=== PATIENT | female | born 1935 | race Caucasian/White ===

== ENCOUNTER 2017-03-25 11:58 | Inpatient (IN) | payer MEDICARE, MEDICAID ==
--- NOTE | 2017-03-25 12:17 | ED Physician Chart ---
Chief Complaint/HPI - Patient Information Date Seen:: 03/25/17 Time Seen:: 12:10 Chief Complaint:: Pt was found unresponsive on floor at nursing facility earlier today. History of Present Illness:: Brought in by ambulance from nursing facility for the above reason. Pt appears to be comfortable and is in no distress. Pt has pain with palpation at R hip and R ankle. Pt denies any other bodily pain or discomfort. Pt has h/o dementia and is not fully cooperative. Pt is also a poor history provider. Info is primarily from review of limited transfer documents. H & P are thus limited. Allergies:: PCN Vitals:: see Nurse note. Historian:: Patient, Medical Records (from transferring facility.) Family MD/PCP:: Dr. Ogden LMP:: Postmenopausal Review:: Nurse's Note Reviewed, Transfer documents Reviewed Review of Systems - Review of Systems General/Constitutional: Other (Pt does not cooperate to provide reliable info for ROS.) Past Medical History - Past Medical History Past Medical History: HTN, DM, Dyslipidemia, Dementia Family History: Other (Pt does not cooperate to provide info on FHx.) Social History: Care Facility, Other (Pt does not cooperate to provide info on SHx.) Employment:: Retired. Surgical History: other (Pt does not cooperate to provide info on Surgical Hx.) Psychiatricy History: Depression, Dementia Medication: Reviewed Family Medical History - Family Member mother History Unknown: Yes Physical Exam - Physical Examination General/Constitutional: Awake, Well-developed, well-nourished, Alert, No distress, Non-toxic appearing Other Gen/Cons comments:: Breathes comfortably, speaks clearly, and is responsive to voice and tactile stimuli. Head: Atraumatic Eyes: Lids, conjuctiva normal, PERRL, EOMI Skin: Nl inspection, No rash, No skin lesions, No ecchymosis, Well hydrated, No lymphadenopathy ENMT: External ears, nose nl, Nasal exam nl, Oropharynx nl Neck: Nontender, Full ROM w/o pain, No JVD, No nuchal rigidity, No mass, No stridor Respiratory: Nl effort/Exclusion, Clear to Auscultation, No Wheeze/Rhonchi/Rales Cardio Vascular: No murmur, gallop, rubs Other Cardio Vascular comments:: Regular rhythm with mild bradycardia. VR 52. GI: No tenderness/rebounding/guarding, No organomegaly, No hernia, Normal BS's, Nondistended, No mass/bruits, No McBurney tenderness Other GI comments:: Abdomen is soft. A well healed midline longitudinal surgical scar extending from upper to lower abdomen is noticed. Other Extremities comments:: R hip: Tenderness to palpation at lateral aspect. ROM is limited due to pain. No gross deformity, erythema, ecchymosis, swelling or open wound. R ankle: Diffuse tenderness with mild swelling. No erythema, ecchymosis, or open wound. Chronic changes with well healed surgical scars noticed. ROM is not well assessed due to pain. No detectable motor/sensory/vascular deficit. Good distal pulse and capillary refill. Neuro/Psych: Alert/oriented (knows her name and that she is in a hospital.) Other Neuro/Psych comments:: spontaneous movements noticed in all 4 extremities. Pt does not cooperate for full neurological exam. Labs/Radiology/EKG Results - Lab Results Results: Laboratory Tests 03/25/17 12:09 POC Glucose 77 Laboratory Tests 03/25/17 03/25/17 03/25/17 12:09 12:35 12:35 WBC 10.1 RBC 3.38 L Hgb 10.5 L Hct 30.7 L MCV 90.9 MCH 31.1 H MCHC Differential 34.2 RDW 12.7 Plt Count 250 MPV 7.7 Neutrophils % 67.9 Lymphocytes % 17.5 L Monocytes % 8.2 Eosinophils % 6.4 H Basophils % 0.0 PT 11.4 INR 1.09 PTT (Actin FS) 25.6 L Sodium Potassium Chloride Carbon Dioxide Anion Gap BUN Creatinine Est GFR ( Amer) Est GFR (Non-Af Amer) BUN/Creatinine Ratio Glucose POC Glucose 77 Calcium Total Bilirubin AST ALT Alkaline Phosphatase Creatine Kinase Troponin I Total Protein Albumin Globulin Albumin/Globulin Ratio Urine Source Urine Color Urine Clarity Urine pH Ur Specific [place] Urine Protein Urine Glucose (UA) Urine Ketones Urine Blood Urine Nitrate Urine Bilirubin Urine Urobilinogen Ur Leukocyte Esterase Urine RBC Urine WBC Ur Epithelial Cells Urine Bacteria 03/25/17 03/25/17 03/25/17 12:35 12:35 13:44 WBC RBC Hgb Hct MCV MCH MCHC Differential RDW Plt Count MPV Neutrophils % Lymphocytes % Monocytes % Eosinophils % Basophils % PT INR PTT (Actin FS) Sodium 136 Potassium 4.3 Chloride 107 Carbon Dioxide 25.3 Anion Gap 8.0 BUN 31 H Creatinine 1.4 H Est GFR ( Amer) TNP Est GFR (Non-Af Amer) TNP BUN/Creatinine Ratio 22.1 Glucose 108 H POC Glucose Calcium 9.7 Total Bilirubin 0.5 AST 12 L ALT 7 Alkaline Phosphatase 44 Creatine Kinase 53 Troponin I 0.02 Total Protein 6.7 Albumin 3.6 L Globulin 3.1 Albumin/Globulin Ratio 1.2 Urine Source CATH Urine Color YELLOW Urine Clarity H Urine pH 6.0 Ur Specific [place] 1.020 Urine Protein >=300 Urine Glucose (UA) NEGATIVE Urine Ketones NEGATIVE Urine Blood TRACE Urine Nitrate NEGATIVE Urine Bilirubin NEGATIVE Urine Urobilinogen 0.2 Ur Leukocyte Esterase NEGATIVE Urine RBC 0-2 Urine WBC 2-5 Ur Epithelial Cells FEW Urine Bacteria NONE SEEN - Radiology Results Results: R hip X-ray (2v.): Based on my interpretation, degenerative changes noticed. No acute fx or subluxation. Official report is pending. R ankle X-ray: Based on my interpretation, chronic changes with surgical hardwares in place. No acute fx or subluxation. Official report is pending. - EKG Interpretations EKG Time:: 12:29 Rate & Rhythm: Sinus bradycardia with VR 52. Comments:: NSSTT changes. Cardiac monitoring: Sinus bradycardia with VR 55. No ectopy. ED Septic Shock - . Is Septic Shock (SBP<90, OR Lactate>4 mmol\L) present?: No Reassessment (Disposition) - Reassessment Reassessment:: 1535 Pt has been repeatedly evaluated. Pt remains stable. No new findings. Awaiting X-rays. 1713 Pt remains stable. X-rays just became available and have been reviewed. Dr. Morocho is to be contacted. 1858 Pt has been stable and comfortable. Repeat Accuchek is 97. Attempts to reach Dr. Morocho repeatedly without success. Case was discussed with Dr. Lacey. Pt is to be admitted to [facility] under his care. Reassessment Condition:: Improved - Diagnosis Diagnosis:: Bradydysrrhythmia. Syncope by hx. R hip and R ankle contusion. Diabetes mellitus, stable. - Patient Disposition Admitted to:: Telemetry Admitting Medical Physician:: Frank Lacey Time:: 19:00 Condition at Disposition:: Stable, Improved
[2017-03-25] MEDS ORDERED: D5-0.45NS 1,000 ML IV ONE (12:21)
[2017-03-25 12:45] LABS: % EOSINOPHILS 6.4 % (0.0-5.0); % LYMPHOCYTES 17.5 % (20.0-50.0); % MONOCYTES 8.2 % (2.0-10.0); % NEUTROPHILS 67.9 % (40.0-80.0); HEMATOCRIT 30.7 % (35.0-45.0); HEMOGLOBIN 10.5 gm/dL (11.7-16.1); MEAN CELL VOLUME 90.9 fl (81-100); MEAN CORPUSCULAR HEMOGLOBIN 31.1 pg (27.0-31.0); MEAN CORPUSCULAR HGB CONC 34.2 pg (28.0-36.0); MEAN PLATELET VOLUME 7.7 fl; NEUTROPHILE ABSOLUTE 6.9 Th/cmm (1.8-8.0); PLATELET COUNT 250 Th/cmm (150-400); RED BLOOD COUNT 3.38 Mil/cmm (3.80-5.20); RED CELL DISTRIBUTION WIDTH 12.7 % (11.5-20.0); WHITE BLOOD COUNT 10.1 Th/cmm (4.8-10.8)
[2017-03-25 13:00] LABS: INR 1.09 (0.5-1.4); PROTHROMBIN TIME (TEST) 11.4 SECONDS (9.5-11.5)
[2017-03-25 13:11] LABS: POTASSIUM SERUM 4.3 mEq/L (3.5-5.1); SODIUM SERUM 136 mEq/L (136-145)
[2017-03-25 13:12] LABS: CHLORIDE 107 mEq/L (98-107)
[2017-03-25 13:18] LABS: ALKALINE PHOSPHATASE 44 U/L (34-104); CARBON DIOXIDE 25.3 mEq/L (21.0-31.0); SGPT/ALT 7 U/L (7-52)
[2017-03-25 13:19] LABS: BILIRUBIN,TOTAL 0.5 mg/dL (0.3-1.0); BUN - UREA NITROGEN 31 mg/dL (7-25); BUN/CREATININE RATIO 22.1; CALCIUM SERUM 9.7 mg/dL (8.6-10.3); CREATININE - SERUM 1.4 mg/dL (0.6-1.2); GLUCOSE 108 mg/dL (70-105); SGOT 12 U/L (13-39)
[2017-03-25 13:20] LABS: ALB/GLOB RATIO 1.2 (1.0-1.8)
[2017-03-25 14:05] LABS: URINE BILIRUBIN NEGATIVE (NEGATIVE); URINE BLOOD TRACE (NEGATIVE); URINE GLUCOSE (UA) NEGATIVE (NEGATIVE); URINE KETONE NEGATIVE (NEGATIVE); URINE PROTEIN >=300 mg/dL (NEGATIVE); URINE UROBILINOGEN 0.2 E.U./dL (0.2 - 1.0)
[2017-03-25 14:11] LABS: URINE BACTERIA NONE SEEN /hpf (NONE SEEN); URINE COLOR YELLOW; URINE EPITHELIAL CELLS FEW /lpf (FEW); URINE RBC 0-2 /hpf (0-5)
[2017-03-25] MEDS ORDERED: guaiFENesin 200 MG/10 ML UDC PO PRN (19:29)
[2017-03-25] MEDS ORDERED: Ipratropium Neb 0.5 mg/2.5 mL UD IH PRN (19:29)
[2017-03-25] MEDS ORDERED: Albuterol Nebulizer 2.5mg/3mL HHN PRN (19:29)
[2017-03-25] MEDS ORDERED: Maalox 30 mL Cup PO PRN (19:29)
[2017-03-25] MEDS ORDERED: Non-Formulary Item 1 EA (Rosuvastatin Calcium [Crestor] 5 MG) PO SCH (21:00)
--- NOTE | 2017-03-25 21:21 | Admit Criteria Form ---
Admit Criteria Forms - Admit Criteria Diagnosis: TELEMETRY CARE Telemetry Admission Guidelines (Place 'X' for any and all applicable criteria): Admission to telemetry [A] may be indicated for ANY ONE of the following(1)(2)(3 )(4)(5): [X ]I. Cardiac disease, including ANY ONE of the following (9)(10)(11)(12)( 13): [ ]a) Postacute [place] [ ]b) Low-risk patients with ST-segment elevation [place] who have undergone successful percutaneous coronary intervention [ ]c) Unstable angina [ ]d) Suspected [place] (until it is ruled out) [ ]e) Post cardiac surgery (first 48 to 72 hours unless complications occur) [ X]f) Acute arrhythmias (including significant tachycardia or bradycardia) [B] [ ]g) Firing of an implantable cardioverter defibrillator [C] [ ]h) Suspected pacemaker or implantable cardioverter defibrillator malfunction (10) [ ]i) New administration or adjustment of an antiarrhythmic drug [D ] [ ]j) Child admitted for acute congestive heart failure [ ]j) Long QT syndrome [ ]k) Advanced heart block (eg, second-degree Mobitz type II, third- degree heart block) [ ]l) Acute myocarditis or pericarditis [ ]m) Short-term (ambulatory or inpatient) monitoring after a cardiac procedure as indicated by ANY ONE of the following [E]: [ ]i) Electrophysiologic studies [ ]ii) Percutaneous coronary intervention with stent placement [ ]iii) Pacemaker placement with cardiac conduction defect [ ]iv) Implantable cardiac defibrillator placement [ ]II. Drug overdose or poisoning with substance that causes arrhythmias or QT prolongation (eg, phenothiazines, sympathomimetic agents, cyclic antidepressants, digitalis, antiarrhythmic drugs)(15) [ ]III. Short-term (ambulatory or inpatient) monitoring after therapeutic or diagnostic procedure requiring conscious sedation or anesthesia (eg, endoscopy, elective cardioversion) [ ]IV. Acute cerebrovascular even[F](18) [ ]V. Massive blood transfusion (eg, at least 10 units of packed red blood cells in 24 hours) [ ]. Variceal bleeding after endoscopy, sclerotherapy, or IV vasopressin [ ]VII. Uncorrected electrolyte abnormalities associated with an increased risk of dangerous arrhythmia [G]; examples include [ ]a) Hyperkalemia with attributable ECG changes [ ]b) Potassium greater than 6.5 mmol/L (mEq/L) in a patient without history of chronic renal disease [ ]c) Prolonged QT attributed to hypokalemia, hypomagnesemia, or hypocalcemia [ ]VIII.Unexplained syncope or other neurologic event suspected of being due to arrhythmia due to a finding that increases risk; examples include(19)(20)(21): [ ]a) High-risk ECG findings (eg, bifascicular block, bradycardia, abnormal QT interval, ventricular pre- excitation) [ ]b) History of previous syncope due to arrhythmia [ ]c) Abnormal ventricular function (eg, reduced ejection fraction ) [ ]d) Exertional or supine syncope [ ]e) Concerning syncope characteristics (eg, sudden loss of consciousness without prodrome) [ ]f) Family history of sudden [ ]g) Use of arrhythmogenic medication [ ]h) Suspected cardiac ischemia [ ]i) Known channelopathy (eg, long QT syndrome, Brugada syndrome, or catecholaminergic paroxysmal ventricular tachycardia) [ ]j) Known structural heart disease (eg, hypertrophic cardiomyopathy , severe valvular disease) [ ]k) Palpitations preceding syncope The original [employer] content created by [employer] has been revised. The portions of the content which have been revised are identified through the use of italic text or in bold, and [facility] has neither reviewed nor approved the modified material. All other unmodified content is copyright [employer]. Please see references footnoted in the original [employer] edition 2016 Admit Criteria Met?: Yes
--- NOTE | 2017-03-25 21:40 | History and Physical ---
History of Present Illness - HPI Chief Complaint: aloc, black out HPI: 81 yo female with dementia, dm and htn sent to er 2 being found down, unconscious, pt is confused , unable to give detailed history, pt denies cp and sob Vital Signs: Last Vital Signs Temp 98.7 F 03/25/17 20:00 Pulse 63 03/25/17 20:00 Resp 20 03/25/17 20:00 BP 110/59 03/25/17 20:00 Pulse Ox 97 03/25/17 20:00 Past Medical History Cardiovascular: Report: CAD, CHF, HTN Pulmonary: Report: No Pertinent Hx FUEL OPERATOR: Report: Dementia GI: Report: No Pertinent Hx Psych: Report: No Pertinent Hx, Psychosis Musculoskeletal: Report: No Pertinent Hx Rheumatologic: Report: No pertinent Hx Infectious Disease: Report: No Pertinent Hx Endocrine: Report: Diabetes Dermatology: Report: No Pertinent Hx - Past Surgical History Past Surgical History: No pertinent Hx Family Medical History - Family Member mother History Unknown: Yes Living Status: Unknown Hx Family Cancer: No Hx Family Coronary Artery Disease: No Hx Family Congestive Heart Failure: No Hx Family Hypertension: No Hx Family Stroke: No Hx Family Diabetes: No Hx Family Seizures: No Hx Family Dementia: No Hx Family AIDS: No Hx Family HIV: No Hx Family COPD: No Hx Family Hepatitis: No Hx Family Psychiatric Problems: No Hx Family Tuberculosis: No Social History Smoke: No Alcohol: None Drugs: None Lives: Detention Domestic Violence: Negative - Medications Home Medications: Home Medication Medication Instructions Recorded Type Acetaminophen [Tylenol] 650 mg PO Q4HR PRN 03/25/17 History Aspirin [Aspirin Chewable] 81 mg PO DAILY 03/25/17 History Brimonidine 0.2% Ophth Soln 1 drop EACH EYE BID 03/25/17 History [Alphagan 0.2% Ophth Soln] Carvedilol [Coreg] 12.5 mg PO BID 03/25/17 History Cholecalciferol (Vitamin D3) 2,000 iu PO DAILY 03/25/17 History [Vitamin D3] Dextromethorphan/Quinidine 1 cap PO DAILY 03/25/17 History [Nuedexta 20mg-10mg] Insulin Aspart, Recombinant 2 unit SUBQ ACHS 03/25/17 History [NovoLOG] Insulin NPH Human Isophane 12 unit SQ QAM 03/25/17 History [Humulin N] Insulin NPH Human Isophane 20 unit SQ HS 03/25/17 History [Humulin N] Lisinopril [Prinivil] 10 mg PO DAILY 03/25/17 History Memantine [Namenda] 5 mg PO BID 03/25/17 History Ondansetron [Zofran Odt] 8 mg PO Q8H PRN 03/25/17 History Rosuvastatin Calcium [Crestor] 5 mg PO HS 03/25/17 History Sitagliptin Phosphate [Januvia] 100 mg PO DAILY 03/25/17 History metFORMIN [Glucophage] 850 mg PO TID 03/25/17 History - Allergies Allergies/Adverse Reactions: Allergies Allergy/AdvReac Type Severity Reaction Status Date / Time Penicillins Allergy Verified 03/25/17 12:21 Review of Systems - Review of Systems Constitutional: Report: Weakness Eyes: Report: No Significant ENT: Report: No Significant Respiratory: Report: No Significant Cardiovascular: Report: No Significant Gastrointestinal: Report: No Significant Genitourinary: Report: Incontinence Musculoskeletal: Report: No Significant Skin: Report: No Significant Neurological: Report: Confusion Physical Exam - Physical Exam HEENT: Report: Ears Nose Throat within normal limits Neck: Report: Within normal limits Cardiovascular Systems: Report: +s1/s2 noted, Regular, Rate and Rhythm, Systolic Murmur Respiratory: Report: Breath Sounds are within normal limits Abdomen: Report: Non-tender to palpation Back: Report: Inspection of back is within normal limits. Extremities: Report: Non-tender to palpation. Skin: Report: Color of skin is within normal limits Neuro/Psych: Report: Disoriented to name time or place - Lab Results All Lab Results last 24 hours: Laboratory Last Values WBC 10.1 Th/cmm (4.8-10.8) 03/25/17 12:35 RBC 3.38 Mil/cmm (3.80-5.20) L 03/25/17 12:35 Hgb 10.5 gm/dL (11.7-16.1) L 03/25/17 12:35 Hct 30.7 % (35.0-45.0) L 03/25/17 12:35 MCV 90.9 fl (81-100) 03/25/17 12:35 MCH 31.1 pg (27.0-31.0) H 03/25/17 12:35 MCHC Differential 34.2 pg (28.0-36.0) 03/25/17 12:35 RDW 12.7 % (11.5-20.0) 03/25/17 12:35 Plt Count 250 Th/cmm (150-400) 03/25/17 12:35 MPV 7.7 fl 03/25/17 12:35 Neutrophils % 67.9 % (40.0-80.0) 03/25/17 12:35 Lymphocytes % 17.5 % (20.0-50.0) L 03/25/17 12:35 Monocytes % 8.2 % (2.0-10.0) 03/25/17 12:35 Eosinophils % 6.4 % (0.0-5.0) H 03/25/17 12:35 Basophils % 0.0 % (0.0-2.0) 03/25/17 12:35 PT 11.4 SECONDS (9.5-11.5) 03/25/17 12:35 INR 1.09 (0.5-1.4) 03/25/17 12:35 PTT (Actin FS) 25.6 SECONDS (26.0-38.0) L 03/25/17 12:35 Sodium 136 mEq/L (136-145) 03/25/17 12:35 Potassium 4.3 mEq/L (3.5-5.1) 03/25/17 12:35 Chloride 107 mEq/L (98-107) 03/25/17 12:35 Carbon Dioxide 25.3 mEq/L (21.0-31.0) 03/25/17 12:35 Anion Gap 8.0 (7.0-16.0) 03/25/17 12:35 BUN 31 mg/dL (7-25) H 03/25/17 12:35 Creatinine 1.4 mg/dL (0.6-1.2) H 03/25/17 12:35 Est GFR ( Amer) TNP 03/25/17 12:35 Est GFR (Non-Af Amer) TNP 03/25/17 12:35 BUN/Creatinine Ratio 22.1 03/25/17 12:35 Glucose 108 mg/dL (70-105) H 03/25/17 12:35 POC Glucose 98 MG/DL (70 - 105) 03/25/17 18:32 Calcium 9.7 mg/dL (8.6-10.3) 03/25/17 12:35 Total Bilirubin 0.5 mg/dL (0.3-1.0) 03/25/17 12:35 AST 12 U/L (13-39) L 03/25/17 12:35 ALT 7 U/L (7-52) 03/25/17 12:35 Alkaline Phosphatase 44 U/L (34-104) 03/25/17 12:35 Creatine Kinase 53 U/L (30-223) 03/25/17 12:35 Troponin I 0.02 ng/mL (0.01-0.05) 03/25/17 12:35 Total Protein 6.7 gm/dL (6.0-8.3) 03/25/17 12:35 Albumin 3.6 gm/dL (3.7-5.3) L 03/25/17 12:35 Globulin 3.1 gm/dL 03/25/17 12:35 Albumin/Globulin Ratio 1.2 (1.0-1.8) 03/25/17 12:35 Urine Source CATH 03/25/17 13:44 Urine Color YELLOW 03/25/17 13:44 Urine Clarity H (CLEAR) 03/25/17 13:44 Urine pH 6.0 (4.6 - 8.0) 03/25/17 13:44 Ur Specific [place] 1.020 (1.005-1.030) 03/25/17 13:44 Urine Protein >=300 mg/dL (NEGATIVE) 03/25/17 13:44 Urine Glucose (UA) NEGATIVE mg/dL (NEGATIVE) 03/25/17 13:44 Urine Ketones NEGATIVE mg/dL (NEGATIVE) 03/25/17 13:44 Urine Blood TRACE (NEGATIVE) 03/25/17 13:44 Urine Nitrate NEGATIVE (NEGATIVE) 03/25/17 13:44 Urine Bilirubin NEGATIVE (NEGATIVE) 03/25/17 13:44 Urine Urobilinogen 0.2 E.U./dL (0.2 - 1.0) 03/25/17 13:44 Ur Leukocyte Esterase NEGATIVE (NEGATIVE) 03/25/17 13:44 Urine RBC 0-2 /hpf (0-5) 03/25/17 13:44 Urine WBC 2-5 /hpf (0-5) 03/25/17 13:44 Ur Epithelial Cells FEW /lpf (FEW) 03/25/17 13:44 Urine Bacteria NONE SEEN /hpf (NONE SEEN) 03/25/17 13:44 - Assessment Assessment: syncope dm htn anemia ri dementia Current Active Problems Problem Status Onset ALTERED MENTAL STATUS Acute - Plan Plan: cont on ada ivf will order echo will order carotid ultrasound will review ryanne wolf rn
[2017-03-25] MEDS: Sodium Chloride 0.9% 1,000 ML IV SCH (22:05)
[2017-03-25] MEDS: INSULIN ASPART, RECOMBINANT 100 UNITS/ML SUBQ SCH (22:10)
[2017-03-25] MEDS ORDERED: Pneumococcal Vaccine 0.5 mL Vial IM ONE (23:42)
[2017-03-26 00:54] VITALS: BP 110/59
[2017-03-26] MEDS: INSULIN ASPART, RECOMBINANT 100 UNITS/ML SUBQ SCH ×4 (07:42→22:19)
[2017-03-26] MEDS: Vitamin D3 2,000 IU SGL PO SCH (08:40)
[2017-03-26] MEDS: Dextromethorphan/Quinidine 20mg/10mg Cap PO SCH (08:40)
[2017-03-26] MEDS: Aspirin 81mg Chewable Tab PO SCH (08:40)
[2017-03-26] MEDS: Sodium Chloride 0.9% 1,000 ML IV SCH ×2 (10:25→22:34)
--- NOTE | 2017-03-26 11:01 | Diagnostic Imaging Report ---
Bilateral carotid Doppler ultrasound exam HISTORY: Stroke, CVA, atherosclerotic vascular disease Sonographic static images were obtained to the carotid bifurcation regions bilaterally. Associated Doppler data was obtained. The exam demonstrates mild atherosclerotic plaque within the right carotid bulb and proximal portions of the right internal and external carotid arteries. No significant narrowing or stenosis. Antegrade vertebral artery flow. The ICA/CCA flow ratios normal (0.68). The left side demonstrates mild plaque within the carotid bulb region as well as within the proximal portions of the left internal and external carotid arteries. No significant narrowing or stenosis. Antegrade vertebral artery flow. The ICA/CCA flow ratios normal (1.35). IMPRESSION: 1. Somewhat limited exam due to marked tortuosity of the common carotid arteries. 2. Mild atherosclerotic changes that do not appear to be hemodynamically significant
--- NOTE | 2017-03-26 11:18 | Diagnostic Imaging Report ---
Right ankle (3 views) HISTORY: Pain The exam demonstrates surgical changes associated with an intramedullary fixation luis traversing the distal tibia and talocalcaneal region. Surgical screws noted traversing the calcaneus and talar areas. There is obliteration of the talus and joint spaces throughout the ankle region with apparent fusion. No definite acute bony abnormalities. No definite acute fractures. Vascular calcification noted. IMPRESSION: 1. Severe deformity associated with extensive surgical changes as noted above. No definite acute abnormalities 2. Atherosclerotic vascular changes In the presence of recent trauma and persistent symptoms, a repeat radiograph in 5-7 days may be helpful for detection of a subtle or occult fracture.
--- NOTE | 2017-03-26 11:21 | Diagnostic Imaging Report ---
Right hip (3 views) HISTORY: Pain Joint space narrowing. Femoral head exhibits a normal contour. No focal lesions. No fractures. Vascular calcification noted. Degenerative changes are seen within the visualized lower lumbar spine. IMPRESSION: 1. No acute abnormalities 2. Degenerative changes
--- NOTE | 2017-03-26 12:25 | Internal Medicine Prog Note ---
Internal Medicine Subjective - Subjective Service Date: 03/26/17 (carotid us impression mild arthersclerotic changes that do not appear to be hemodynamically significant. ) Patient seen and examined:: with staff Patient is:: awake, verbal, confused Per staff patient has:: tolerating meds Internal Medicine Objective - Results Result Diagrams: 03/25/17 12:35 03/25/17 12:35 Recent Labs: Laboratory Last Values WBC 10.1 Th/cmm (4.8-10.8) 03/25/17 12:35 RBC 3.38 Mil/cmm (3.80-5.20) L 03/25/17 12:35 Hgb 10.5 gm/dL (11.7-16.1) L 03/25/17 12:35 Hct 30.7 % (35.0-45.0) L 03/25/17 12:35 MCV 90.9 fl (81-100) 03/25/17 12:35 MCH 31.1 pg (27.0-31.0) H 03/25/17 12:35 MCHC Differential 34.2 pg (28.0-36.0) 03/25/17 12:35 RDW 12.7 % (11.5-20.0) 03/25/17 12:35 Plt Count 250 Th/cmm (150-400) 03/25/17 12:35 MPV 7.7 fl 03/25/17 12:35 Neutrophils % 67.9 % (40.0-80.0) 03/25/17 12:35 Lymphocytes % 17.5 % (20.0-50.0) L 03/25/17 12:35 Monocytes % 8.2 % (2.0-10.0) 03/25/17 12:35 Eosinophils % 6.4 % (0.0-5.0) H 03/25/17 12:35 Basophils % 0.0 % (0.0-2.0) 03/25/17 12:35 PT 11.4 SECONDS (9.5-11.5) 03/25/17 12:35 INR 1.09 (0.5-1.4) 03/25/17 12:35 PTT (Actin FS) 25.6 SECONDS (26.0-38.0) L 03/25/17 12:35 Sodium 136 mEq/L (136-145) 03/25/17 12:35 Potassium 4.3 mEq/L (3.5-5.1) 03/25/17 12:35 Chloride 107 mEq/L (98-107) 03/25/17 12:35 Carbon Dioxide 25.3 mEq/L (21.0-31.0) 03/25/17 12:35 Anion Gap 8.0 (7.0-16.0) 03/25/17 12:35 BUN 31 mg/dL (7-25) H 03/25/17 12:35 Creatinine 1.4 mg/dL (0.6-1.2) H 03/25/17 12:35 Est GFR ( Amer) TNP 03/25/17 12:35 Est GFR (Non-Af Amer) TNP 03/25/17 12:35 BUN/Creatinine Ratio 22.1 03/25/17 12:35 Glucose 108 mg/dL (70-105) H 03/25/17 12:35 POC Glucose 142 MG/DL (70 - 105) H 03/26/17 11:33 Calcium 9.7 mg/dL (8.6-10.3) 03/25/17 12:35 Total Bilirubin 0.5 mg/dL (0.3-1.0) 03/25/17 12:35 AST 12 U/L (13-39) L 03/25/17 12:35 ALT 7 U/L (7-52) 03/25/17 12:35 Alkaline Phosphatase 44 U/L (34-104) 03/25/17 12:35 Creatine Kinase 53 U/L (30-223) 03/25/17 12:35 Troponin I 0.02 ng/mL (0.01-0.05) 03/25/17 12:35 Total Protein 6.7 gm/dL (6.0-8.3) 03/25/17 12:35 Albumin 3.6 gm/dL (3.7-5.3) L 03/25/17 12:35 Globulin 3.1 gm/dL 03/25/17 12:35 Albumin/Globulin Ratio 1.2 (1.0-1.8) 03/25/17 12:35 Urine Source CATH 03/25/17 13:44 Urine Color YELLOW 03/25/17 13:44 Urine Clarity H (CLEAR) 03/25/17 13:44 Urine pH 6.0 (4.6 - 8.0) 03/25/17 13:44 Ur Specific [place] 1.020 (1.005-1.030) 03/25/17 13:44 Urine Protein >=300 mg/dL (NEGATIVE) 03/25/17 13:44 Urine Glucose (UA) NEGATIVE mg/dL (NEGATIVE) 03/25/17 13:44 Urine Ketones NEGATIVE mg/dL (NEGATIVE) 03/25/17 13:44 Urine Blood TRACE (NEGATIVE) 03/25/17 13:44 Urine Nitrate NEGATIVE (NEGATIVE) 03/25/17 13:44 Urine Bilirubin NEGATIVE (NEGATIVE) 03/25/17 13:44 Urine Urobilinogen 0.2 E.U./dL (0.2 - 1.0) 03/25/17 13:44 Ur Leukocyte Esterase NEGATIVE (NEGATIVE) 03/25/17 13:44 Urine RBC 0-2 /hpf (0-5) 03/25/17 13:44 Urine WBC 2-5 /hpf (0-5) 03/25/17 13:44 Ur Epithelial Cells FEW /lpf (FEW) 03/25/17 13:44 Urine Bacteria NONE SEEN /hpf (NONE SEEN) 03/25/17 13:44 - Physical Exam Vitals and I&O: Vital Signs Temp 98.6 F 03/26/17 08:00 Pulse 62 03/26/17 08:41 Resp 20 03/26/17 08:00 BP 100/73 03/26/17 08:41 Pulse Ox 98 03/26/17 08:00 Intake & Output 03/25/17 03/26/17 03/26/17 18:59 06:59 18:59 Intake Total 986.667 Balance 986.667 Weight (lbs) 121 lb 3.2 oz Intake: Intake, IV Amount 986.667 Sodium Chloride 0.9% 1, 986.667 000 ml @ 80 mls/hr IV . [id number] [facility] Rx#:[id number] Active Medications: Current Medications Acetaminophen (Tylenol) 650 mg PO Q4HR PRN PRN Reason: pain/temp >101 Stop: 05/24/17 19:23 Al Hydrox/Mg Hydrox/Simethicone (Maalox) 30 ml PO Q6H PRN PRN Reason: Dyspepsia Stop: 05/24/17 19:28 Albuterol Sulfate (Albuterol 2.5mg/3ml Neb Ud) 2.5 mg HHN Q2HRT PRN PRN Reason: Shortness of Breath or Wheeze Stop: 05/24/17 19:28 Aspirin (Aspirin Chewable) 81 mg PO DAILY [facility] Stop: 05/25/17 08:59 Last Admin: 03/26/17 08:40 Dose: 81 mg Atorvastatin Calcium (Lipitor) 10 mg PO HS [facility] Stop: 05/25/17 20:59 Brimonidine Tartrate (Alphagan 0.2% Oph Sol) 1 drop EACH EYE BID [facility] Stop: 05/25/17 08:59 Last Admin: 03/26/17 08:49 Dose: 1 drop Dextromethorphan/Quinidine (Nuedexta 20mg-10mg) 1 cap PO DAILY [facility] Stop: 05/25/17 08:59 Last Admin: 03/26/17 08:40 Dose: 1 cap Guaifenesin (Robitussin) 200 mg PO Q4HR PRN PRN Reason: Cough or Congestion Stop: 05/24/17 19:28 Sodium Chloride (Nacl 0.9%) 1,000 mls @ 80 mls/hr IV .[id number] [facility] Stop: 05/24/17 19:29 Last Admin: 03/26/17 10:25 Dose: 80 mls/hr Insulin Aspart (Novolog) 0 units SUBQ ACHS [facility] PRN Reason: Protocol Stop: 05/24/17 20:59 Last Admin: 03/26/17 07:42 Dose: Not Given Ipratropium [place] (Atrovent Neb 0.5mg/2.5ml) 0.5 mg IH Q2HRT PRN PRN Reason: Shortness of Breath or Wheeze Stop: 05/24/17 19:28 Lisinopril (Zestril) 10 mg PO DAILY [facility] Stop: 05/25/17 08:59 Last Admin: 03/26/17 08:41 Dose: Not Given Memantine (Namenda) 5 mg PO BID [facility] Stop: 05/25/17 08:59 Last Admin: 03/26/17 08:40 Dose: 5 mg Metformin HCl (Glucophage) 850 mg PO TID [facility] Stop: 05/24/17 20:59 Last Admin: 03/26/17 08:40 Dose: Not Given Miscellaneous (Clinical Monitoring) 1 ea MC DAILY PRN PRN Reason: RENAL-METFORMIN Stop: 05/25/17 08:22 Nitroglycerin (Nitrostat) 0.4 mg SL Q5MIN PRN PRN Reason: Chest Pain Stop: 05/24/17 19:28 Ondansetron HCl (Zofran Odt) 8 mg PO Q8H PRN PRN Reason: Nausea / Vomiting Ondansetron HCl (Zofran) 4 mg IV Q8H PRN PRN Reason: Nausea / Vomiting Stop: 05/24/17 19:28 Pneumococcal Polyvalent Vaccine (Pneumovax) 0.5 ml IM .ONCE ONE Stop: 03/27/17 09:01 Sitagliptin Phosphate (Januvia) 100 mg PO DAILY [facility] Stop: 05/25/17 08:59 Last Admin: 03/26/17 08:43 Dose: Not Given Vitamin D (Vitamin D3) 2,000 iu PO DAILY [facility] Stop: 05/25/17 08:59 Last Admin: 03/26/17 08:40 Dose: 2,000 iu General: weak, alert HEENT: NC/AT, PERRLA Neck: Supple Lungs: CTAB Cardiovascular: RRR, Normal S1, Normal S2, without murmur Abdomen: soft, non-tender, non-distended Internal Medicine Assmt/Plan - Assessment Assessment: syncope dm htn anemia ri dementia - Plan Plan: fall precautions ivf for hydration am labs cardio consult await 2d echo results
--- NOTE | 2017-03-26 13:13 | Cardiology ---
03/25/[address] Lacey M-MODE ECHOCARDIOGRAM: Mitral valve, anterior leaflet of mitral valve shows normal excursion, EF velocity. Posterior leaflet of mitral valve shows normal excursion. Left ventricular posterior wall shows increased thickness, normal excursion. Interventricular septum shows increased thickness, normal excursion, hypertrophy of the left ventricle, ejection fraction 55%. Left atrium normal. Aortic root shows normal dimension, normal excursion of aortic leaflets. CONCLUSION: Hypertrophy of the left ventricle, ejection fraction 55%. 2D ECHO: Long axis view show normal size left ventricle with hypertrophy of the left ventricle. Left atrium normal. Aortic root shows normal dimension, normal excursion of aortic leaflets. Short axis view of mitral valve normal. Short axis view of aortic valve normal. Apical four chamber view showed normal sized left ventricle with hypertrophy of the left ventricle. Left atrium normal. Right ventricular cavity, right atrium normal, no pericardial effusion. CONCLUSION: Hypertrophy of the left ventricle, ejection fraction 55%. Doppler study shows prominent A wave consistent with poor compliance of left ventricle. Mild tricuspid regurgitation, trace aortic regurgitation, trace mitral regurgitation. Right ventricular systolic pressure 27 mmHg. JOB# [id number]
[2017-03-26] MEDS: Atorvastatin Calcium 10 MG TAB PO SCH (21:21)
--- NOTE | 2017-03-26 23:58 | Consultation ---
DATE OF CONSULTATION: 03/25/2017 PATIENT OF: Dr. Lacey. HISTORY AND PHYSICAL: This 81-year-old female patient who had altered level confusion, syncopal episode. Following this, the patient was brought to [facility]. The patient was still confused, no focal neurological deficit. PAST MEDICAL HISTORY: The patient has a history of coronary artery disease, hypertension, diabetes mellitus type 2, insulin dependent diabetes mellitus, iron deficiency anemia, dementia, gastroparesis, gallstones, H. pylori. FAMILY HISTORY: Unremarkable. SOCIAL HISTORY: No history of smoking or alcohol abuse. ALLERGIES: No known allergies. PHYSICAL EXAMINATION: VITAL SIGNS: Blood pressure 110/70, pulse 70, respirations 20. HEAD: Normocephalic. No lumps or bumps. EYES: Pupils equal, reactive to light. Fundi show AV nicking, sclerae white, conjunctivae pink. NECK: Carotid 2+. Normal upstroke. JVD flat. Thyroid not palpable. Lymph nodes not palpable. CHEST: Shows increased AP diameter. No kyphosis, scoliosis. LUNGS: Bilateral breath sounds. HEART: PMI fifth intercostal space lateral to midclavicular line. S1, S2. No S3, S4. Systolic murmur, grade 2/6, lower left sternal border without radiation. ABDOMEN: Soft. Liver, spleen not palpable. No organomegaly. Bowel sounds are active. NEUROLOGIC: Unremarkable. EXTREMITIES: Peripheral pulses 2+. No pedal edema. CLINICAL IMPRESSION: Syncope, diabetes mellitus type 2, insulin dependent diabetes mellitus, diabetic CKD stage 2, iron deficiency anemia, dementia, gastroparesis, gallstones, hypertension, Helicobacter pylori, osteoporosis. The patient had an echocardiogram which showed ejection fraction 55%, moderate left ventricular hypertrophy, mild mitral regurgitation, trace tricuspid regurgitation, trace aortic regurgitation. PLAN: At the present time, we will continue to monitor the patient for any arrhythmias. JOB# [id number]
[2017-03-27] MEDS: INSULIN ASPART, RECOMBINANT 100 UNITS/ML SUBQ SCH ×2 (07:39→11:38)
[2017-03-27] MEDS ORDERED: Pneumococcal Vaccine 0.5 mL Vial IM ONE (09:00)
[2017-03-27] MEDS: Vitamin D3 2,000 IU SGL PO SCH (09:09)
[2017-03-27] MEDS: Dextromethorphan/Quinidine 20mg/10mg Cap PO SCH (09:09)
[2017-03-27] MEDS: Aspirin 81mg Chewable Tab PO SCH (09:09)
[2017-03-27] MEDS: Sodium Chloride 0.9% 1,000 ML IV SCH (09:12)
--- NOTE | 2017-03-27 13:05 | Internal Medicine Prog Note ---
Internal Medicine Subjective - Subjective Service Date: 03/27/17 (DC SUMMARY [id number]) Patient is:: awake, verbal, confused Per staff patient has:: tolerating meds Internal Medicine Objective - Results Result Diagrams: 03/25/17 12:35 03/25/17 12:35 Recent Labs: Laboratory Last Values WBC 10.1 Th/cmm (4.8-10.8) 03/25/17 12:35 RBC 3.38 Mil/cmm (3.80-5.20) L 03/25/17 12:35 Hgb 10.5 gm/dL (11.7-16.1) L 03/25/17 12:35 Hct 30.7 % (35.0-45.0) L 03/25/17 12:35 MCV 90.9 fl (81-100) 03/25/17 12:35 MCH 31.1 pg (27.0-31.0) H 03/25/17 12:35 MCHC Differential 34.2 pg (28.0-36.0) 03/25/17 12:35 RDW 12.7 % (11.5-20.0) 03/25/17 12:35 Plt Count 250 Th/cmm (150-400) 03/25/17 12:35 MPV 7.7 fl 03/25/17 12:35 Neutrophils % 67.9 % (40.0-80.0) 03/25/17 12:35 Lymphocytes % 17.5 % (20.0-50.0) L 03/25/17 12:35 Monocytes % 8.2 % (2.0-10.0) 03/25/17 12:35 Eosinophils % 6.4 % (0.0-5.0) H 03/25/17 12:35 Basophils % 0.0 % (0.0-2.0) 03/25/17 12:35 PT 11.4 SECONDS (9.5-11.5) 03/25/17 12:35 INR 1.09 (0.5-1.4) 03/25/17 12:35 PTT (Actin FS) 25.6 SECONDS (26.0-38.0) L 03/25/17 12:35 Sodium 136 mEq/L (136-145) 03/25/17 12:35 Potassium 4.3 mEq/L (3.5-5.1) 03/25/17 12:35 Chloride 107 mEq/L (98-107) 03/25/17 12:35 Carbon Dioxide 25.3 mEq/L (21.0-31.0) 03/25/17 12:35 Anion Gap 8.0 (7.0-16.0) 03/25/17 12:35 BUN 31 mg/dL (7-25) H 03/25/17 12:35 Creatinine 1.4 mg/dL (0.6-1.2) H 03/25/17 12:35 Est GFR ( Amer) TNP 03/25/17 12:35 Est GFR (Non-Af Amer) TNP 03/25/17 12:35 BUN/Creatinine Ratio 22.1 03/25/17 12:35 Glucose 108 mg/dL (70-105) H 03/25/17 12:35 POC Glucose 182 MG/DL (70 - 105) H 03/27/17 11:37 Calcium 9.7 mg/dL (8.6-10.3) 03/25/17 12:35 Total Bilirubin 0.5 mg/dL (0.3-1.0) 03/25/17 12:35 AST 12 U/L (13-39) L 03/25/17 12:35 ALT 7 U/L (7-52) 03/25/17 12:35 Alkaline Phosphatase 44 U/L (34-104) 03/25/17 12:35 Creatine Kinase 53 U/L (30-223) 03/25/17 12:35 Troponin I 0.02 ng/mL (0.01-0.05) 03/25/17 12:35 Total Protein 6.7 gm/dL (6.0-8.3) 03/25/17 12:35 Albumin 3.6 gm/dL (3.7-5.3) L 03/25/17 12:35 Globulin 3.1 gm/dL 03/25/17 12:35 Albumin/Globulin Ratio 1.2 (1.0-1.8) 03/25/17 12:35 Urine Source CATH 03/25/17 13:44 Urine Color YELLOW 03/25/17 13:44 Urine Clarity H (CLEAR) 03/25/17 13:44 Urine pH 6.0 (4.6 - 8.0) 03/25/17 13:44 Ur Specific [place] 1.020 (1.005-1.030) 03/25/17 13:44 Urine Protein >=300 mg/dL (NEGATIVE) 03/25/17 13:44 Urine Glucose (UA) NEGATIVE mg/dL (NEGATIVE) 03/25/17 13:44 Urine Ketones NEGATIVE mg/dL (NEGATIVE) 03/25/17 13:44 Urine Blood TRACE (NEGATIVE) 03/25/17 13:44 Urine Nitrate NEGATIVE (NEGATIVE) 03/25/17 13:44 Urine Bilirubin NEGATIVE (NEGATIVE) 03/25/17 13:44 Urine Urobilinogen 0.2 E.U./dL (0.2 - 1.0) 03/25/17 13:44 Ur Leukocyte Esterase NEGATIVE (NEGATIVE) 03/25/17 13:44 Urine RBC 0-2 /hpf (0-5) 03/25/17 13:44 Urine WBC 2-5 /hpf (0-5) 03/25/17 13:44 Ur Epithelial Cells FEW /lpf (FEW) 03/25/17 13:44 Urine Bacteria NONE SEEN /hpf (NONE SEEN) 03/25/17 13:44 - Physical Exam Vitals and I&O: Vital Signs Temp 98.2 F 03/27/17 12:04 Pulse 57 03/27/17 12:04 Resp 18 03/27/17 12:04 BP 163/68 03/27/17 12:04 Pulse Ox 98 03/27/17 12:04 Intake & Output 03/26/17 03/27/17 03/27/17 18:59 06:59 18:59 Intake Total 424.032 8687 Balance 274.526 8611 Weight (lbs) 125 lb 12.8 oz 125 lb 12.8 oz Intake: Intake, IV Amount 986.667 972 Sodium Chloride 0.9% 1, 986.667 972 000 ml @ 80 mls/hr IV . [id number] [facility] Rx#:[id number] Oral 800 Other: # Voids 3 # Bowel Movements 0 Active Medications: Current Medications Acetaminophen (Tylenol) 650 mg PO Q4HR PRN PRN Reason: pain/temp >101 Stop: 05/24/17 19:23 Al Hydrox/Mg Hydrox/Simethicone (Maalox) 30 ml PO Q6H PRN PRN Reason: Dyspepsia Stop: 05/24/17 19:28 Albuterol Sulfate (Albuterol 2.5mg/3ml Neb Ud) 2.5 mg HHN Q2HRT PRN PRN Reason: Shortness of Breath or Wheeze Stop: 05/24/17 19:28 Aspirin (Aspirin Chewable) 81 mg PO DAILY [facility] Stop: 05/25/17 08:59 Last Admin: 03/27/17 09:09 Dose: 81 mg Atorvastatin Calcium (Lipitor) 10 mg PO HS [facility] Stop: 05/25/17 20:59 Last Admin: 03/26/17 21:21 Dose: 10 mg Brimonidine Tartrate (Alphagan 0.2% Oph Sol) 1 drop EACH EYE BID [facility] Stop: 05/25/17 08:59 Last Admin: 03/27/17 09:19 Dose: 1 drop Dextromethorphan/Quinidine (Nuedexta 20mg-10mg) 1 cap PO DAILY [facility] Stop: 05/25/17 08:59 Last Admin: 03/27/17 09:09 Dose: 1 cap Guaifenesin (Robitussin) 200 mg PO Q4HR PRN PRN Reason: Cough or Congestion Stop: 05/24/17 19:28 Sodium Chloride (Nacl 0.9%) 1,000 mls @ 80 mls/hr IV .[id number] [facility] Stop: 05/24/17 19:29 Last Admin: 03/27/17 09:12 Dose: Not Given Insulin Aspart (Novolog) 0 units SUBQ ACHS [facility] PRN Reason: Protocol Stop: 05/24/17 20:59 Last Admin: 03/27/17 11:38 Dose: Not Given Ipratropium [place] (Atrovent Neb 0.5mg/2.5ml) 0.5 mg IH Q2HRT PRN PRN Reason: Shortness of Breath or Wheeze Stop: 05/24/17 19:28 Lisinopril (Zestril) 10 mg PO DAILY [facility] Stop: 05/25/17 08:59 Last Admin: 03/27/17 09:10 Dose: 10 mg Memantine (Namenda) 5 mg PO BID [facility] Stop: 05/25/17 08:59 Last Admin: 03/27/17 09:09 Dose: 5 mg Metformin HCl (Glucophage) 850 mg PO TID [facility] Stop: 05/24/17 20:59 Last Admin: 03/27/17 09:09 Dose: 850 mg Miscellaneous (Clinical Monitoring) 1 ea MC DAILY PRN PRN Reason: RENAL-METFORMIN Stop: 05/25/17 08:22 Nitroglycerin (Nitrostat) 0.4 mg SL Q5MIN PRN PRN Reason: Chest Pain Stop: 05/24/17 19:28 Ondansetron HCl (Zofran Odt) 8 mg PO Q8H PRN PRN Reason: Nausea / Vomiting Ondansetron HCl (Zofran) 4 mg IV Q8H PRN PRN Reason: Nausea / Vomiting Stop: 05/24/17 19:28 Sitagliptin Phosphate (Januvia) 100 mg PO DAILY [facility] Stop: 05/25/17 08:59 Last Admin: 03/27/17 09:10 Dose: 100 mg Vitamin D (Vitamin D3) 2,000 iu PO DAILY [facility] Stop: 05/25/17 08:59 Last Admin: 03/27/17 09:09 Dose: 2,000 iu General: weak, alert HEENT: NC/AT, PERRLA Neck: Supple Lungs: CTAB Cardiovascular: RRR, Normal S1, Normal S2, without murmur Abdomen: soft, non-tender, non-distended Internal Medicine Assmt/Plan - Assessment Assessment: syncope dm htn anemia ri dementia
--- NOTE | 2017-03-27 13:05 | Internal Medicine Prog Note ---
Internal Medicine Subjective - Subjective Service Date: 03/27/17 Patient is:: awake, verbal, confused Per staff patient has:: tolerating meds Internal Medicine Objective - Results Result Diagrams: 03/25/17 12:35 03/25/17 12:35 Recent Labs: Laboratory Last Values WBC 10.1 Th/cmm (4.8-10.8) 03/25/17 12:35 RBC 3.38 Mil/cmm (3.80-5.20) L 03/25/17 12:35 Hgb 10.5 gm/dL (11.7-16.1) L 03/25/17 12:35 Hct 30.7 % (35.0-45.0) L 03/25/17 12:35 MCV 90.9 fl (81-100) 03/25/17 12:35 MCH 31.1 pg (27.0-31.0) H 03/25/17 12:35 MCHC Differential 34.2 pg (28.0-36.0) 03/25/17 12:35 RDW 12.7 % (11.5-20.0) 03/25/17 12:35 Plt Count 250 Th/cmm (150-400) 03/25/17 12:35 MPV 7.7 fl 03/25/17 12:35 Neutrophils % 67.9 % (40.0-80.0) 03/25/17 12:35 Lymphocytes % 17.5 % (20.0-50.0) L 03/25/17 12:35 Monocytes % 8.2 % (2.0-10.0) 03/25/17 12:35 Eosinophils % 6.4 % (0.0-5.0) H 03/25/17 12:35 Basophils % 0.0 % (0.0-2.0) 03/25/17 12:35 PT 11.4 SECONDS (9.5-11.5) 03/25/17 12:35 INR 1.09 (0.5-1.4) 03/25/17 12:35 PTT (Actin FS) 25.6 SECONDS (26.0-38.0) L 03/25/17 12:35 Sodium 136 mEq/L (136-145) 03/25/17 12:35 Potassium 4.3 mEq/L (3.5-5.1) 03/25/17 12:35 Chloride 107 mEq/L (98-107) 03/25/17 12:35 Carbon Dioxide 25.3 mEq/L (21.0-31.0) 03/25/17 12:35 Anion Gap 8.0 (7.0-16.0) 03/25/17 12:35 BUN 31 mg/dL (7-25) H 03/25/17 12:35 Creatinine 1.4 mg/dL (0.6-1.2) H 03/25/17 12:35 Est GFR ( Amer) TNP 03/25/17 12:35 Est GFR (Non-Af Amer) TNP 03/25/17 12:35 BUN/Creatinine Ratio 22.1 03/25/17 12:35 Glucose 108 mg/dL (70-105) H 03/25/17 12:35 POC Glucose 182 MG/DL (70 - 105) H 03/27/17 11:37 Calcium 9.7 mg/dL (8.6-10.3) 03/25/17 12:35 Total Bilirubin 0.5 mg/dL (0.3-1.0) 03/25/17 12:35 AST 12 U/L (13-39) L 03/25/17 12:35 ALT 7 U/L (7-52) 03/25/17 12:35 Alkaline Phosphatase 44 U/L (34-104) 03/25/17 12:35 Creatine Kinase 53 U/L (30-223) 03/25/17 12:35 Troponin I 0.02 ng/mL (0.01-0.05) 03/25/17 12:35 Total Protein 6.7 gm/dL (6.0-8.3) 03/25/17 12:35 Albumin 3.6 gm/dL (3.7-5.3) L 03/25/17 12:35 Globulin 3.1 gm/dL 03/25/17 12:35 Albumin/Globulin Ratio 1.2 (1.0-1.8) 03/25/17 12:35 Urine Source CATH 03/25/17 13:44 Urine Color YELLOW 03/25/17 13:44 Urine Clarity H (CLEAR) 03/25/17 13:44 Urine pH 6.0 (4.6 - 8.0) 03/25/17 13:44 Ur Specific [place] 1.020 (1.005-1.030) 03/25/17 13:44 Urine Protein >=300 mg/dL (NEGATIVE) 03/25/17 13:44 Urine Glucose (UA) NEGATIVE mg/dL (NEGATIVE) 03/25/17 13:44 Urine Ketones NEGATIVE mg/dL (NEGATIVE) 03/25/17 13:44 Urine Blood TRACE (NEGATIVE) 03/25/17 13:44 Urine Nitrate NEGATIVE (NEGATIVE) 03/25/17 13:44 Urine Bilirubin NEGATIVE (NEGATIVE) 03/25/17 13:44 Urine Urobilinogen 0.2 E.U./dL (0.2 - 1.0) 03/25/17 13:44 Ur Leukocyte Esterase NEGATIVE (NEGATIVE) 03/25/17 13:44 Urine RBC 0-2 /hpf (0-5) 03/25/17 13:44 Urine WBC 2-5 /hpf (0-5) 03/25/17 13:44 Ur Epithelial Cells FEW /lpf (FEW) 03/25/17 13:44 Urine Bacteria NONE SEEN /hpf (NONE SEEN) 03/25/17 13:44 - Physical Exam Vitals and I&O: Vital Signs Temp 98.2 F 03/27/17 12:04 Pulse 57 03/27/17 12:04 Resp 18 03/27/17 12:04 BP 163/68 03/27/17 12:04 Pulse Ox 98 03/27/17 12:04 Intake & Output 03/26/17 03/27/17 03/27/17 18:59 06:59 18:59 Intake Total 479.248 5179 Balance 453.734 1775 Weight (lbs) 125 lb 12.8 oz 125 lb 12.8 oz Intake: Intake, IV Amount 986.667 972 Sodium Chloride 0.9% 1, 986.667 972 000 ml @ 80 mls/hr IV . [id number] [facility] Rx#:[id number] Oral 800 Other: # Voids 3 # Bowel Movements 0 Active Medications: Current Medications Acetaminophen (Tylenol) 650 mg PO Q4HR PRN PRN Reason: pain/temp >101 Stop: 05/24/17 19:23 Al Hydrox/Mg Hydrox/Simethicone (Maalox) 30 ml PO Q6H PRN PRN Reason: Dyspepsia Stop: 05/24/17 19:28 Albuterol Sulfate (Albuterol 2.5mg/3ml Neb Ud) 2.5 mg HHN Q2HRT PRN PRN Reason: Shortness of Breath or Wheeze Stop: 05/24/17 19:28 Aspirin (Aspirin Chewable) 81 mg PO DAILY [facility] Stop: 05/25/17 08:59 Last Admin: 03/27/17 09:09 Dose: 81 mg Atorvastatin Calcium (Lipitor) 10 mg PO HS [facility] Stop: 05/25/17 20:59 Last Admin: 03/26/17 21:21 Dose: 10 mg Brimonidine Tartrate (Alphagan 0.2% Ophth Soln) 1 drop EACH EYE BID [facility] Stop: 05/25/17 08:59 Last Admin: 03/27/17 09:19 Dose: 1 drop Dextromethorphan/Quinidine (Nuedexta 20mg-10mg) 1 cap PO DAILY [facility] Stop: 05/25/17 08:59 Last Admin: 03/27/17 09:09 Dose: 1 cap Guaifenesin (Robitussin) 200 mg PO Q4HR PRN PRN Reason: Cough or Congestion Stop: 05/24/17 19:28 Sodium Chloride (Nacl 0.9%) 1,000 mls @ 80 mls/hr IV .[id number] [facility] Stop: 05/24/17 19:29 Last Admin: 03/27/17 09:12 Dose: Not Given Insulin Aspart (Novolog) 0 units SUBQ ACHS [facility] PRN Reason: Protocol Stop: 05/24/17 20:59 Last Admin: 03/27/17 11:38 Dose: Not Given Ipratropium [place] (Atrovent Neb 0.5mg/2.5ml) 0.5 mg IH Q2HRT PRN PRN Reason: Shortness of Breath or Wheeze Stop: 05/24/17 19:28 Lisinopril (Zestril) 10 mg PO DAILY [facility] Stop: 05/25/17 08:59 Last Admin: 03/27/17 09:10 Dose: 10 mg Memantine (Namenda) 5 mg PO BID [facility] Stop: 05/25/17 08:59 Last Admin: 03/27/17 09:09 Dose: 5 mg Metformin HCl (Glucophage) 850 mg PO TID [facility] Stop: 05/24/17 20:59 Last Admin: 03/27/17 09:09 Dose: 850 mg Miscellaneous (Clinical Monitoring) 1 ea MC DAILY PRN PRN Reason: RENAL-METFORMIN Stop: 05/25/17 08:22 Nitroglycerin (Nitrostat) 0.4 mg SL Q5MIN PRN PRN Reason: Chest Pain Stop: 05/24/17 19:28 Ondansetron HCl (Zofran Odt) 8 mg PO Q8H PRN PRN Reason: Nausea / Vomiting Ondansetron HCl (Zofran) 4 mg IV Q8H PRN PRN Reason: Nausea / Vomiting Stop: 05/24/17 19:28 Sitagliptin Phosphate (Januvia) 100 mg PO DAILY [facility] Stop: 05/25/17 08:59 Last Admin: 03/27/17 09:10 Dose: 100 mg Vitamin D (Vitamin D3) 2,000 iu PO DAILY [facility] Stop: 05/25/17 08:59 Last Admin: 03/27/17 09:09 Dose: 2,000 iu General: weak, alert HEENT: NC/AT, PERRLA Neck: Supple Lungs: CTAB Cardiovascular: RRR, Normal S1, Normal S2, without murmur Abdomen: soft, non-tender, non-distended Internal Medicine Assmt/Plan - Assessment Assessment: syncope dm htn anemia ri dementia - Plan Plan: fall precautions ivf for hydration am labs dc planning in am
--- NOTE | 2017-03-27 19:26 | Discharge Summary ---
DATE OF DISCHARGE: 03/27/[address] Frank Lacey. ADMISSION DIAGNOSES: Syncope, diabetes, hypertension, anemia, dementia. DISCHARGE DIAGNOSES: Diabetes, hypertension, anemia, dementia. HISTORY OF PRESENT ILLNESS: This is an 81-year-old female with dementia, diabetes, and hypertension sent to the ER secondary to being found down, unconscious. The patient is confused and unable to give detailed history. PHYSICAL EXAMINATION: GENERAL: The patient is well developed, well nourished, in no acute distress. VITAL SIGNS: Stable. HEENT: Normocephalic and atraumatic. NECK: Supple. No mass. LUNGS: Clear bilaterally. HEART: Regular rhythm. ABDOMEN: Soft and nontender. HOSPITAL COURSE: During the hospital stay, the patient was admitted to the telemetry unit. The patient had a consultation with Dr. Aleksandr Arrieta, and his plan of care for this patient was to order 2D echo. The patient had a 2D echocardiogram done and the impression is ejection fraction of 55%. A carotid ultrasound was also done, and the impression is mild atherosclerotic changes that do not appear to be hemodynamically significant. The patient was placed on the tele monitor ____ sinus rhythm. For this reason, the patient is stable for discharge. Also in the ER, the patient had a hip x-ray and an ankle x-ray. Hip x-ray has no acute abnormalities. Ankle x-ray, no acute abnormalities as well. The patient was cleared for discharge. CONDITION UPON DISCHARGE: Fair. DISPOSITION: [facility]. [facility]# [id number]
[2017-03-27] MEDS: Atorvastatin Calcium 10 MG TAB PO SCH (23:26)
[2017-03-28] MEDS: Vitamin D3 2,000 IU SGL PO SCH (08:54)
[2017-03-28] MEDS: Aspirin 81mg Chewable Tab PO SCH (08:54)
[2017-03-28] MEDS: Dextromethorphan/Quinidine 20mg/10mg Cap PO SCH (08:55)
== END 2017-03-28 12:32 | disposition home or self-care (01) | DRG 312 ==
LOC: ER 11:58 → MSI 19:15 → TELE 20:11 → MSI 03-27 15:00
PROVIDERS: ADMIT Internal Medicine; ATTEND Internal Medicine
DX: I95.1 Orthostatic hypotension (principal); E11.22 Type 2 diabetes mellitus with diabetic chronic kidney disease; K31.84 Gastroparesis; I50.9 Heart failure, unspecified; F03.90 Unspecified dementia, unspecified severity, without behavioral disturbance, psychotic disturbance, mood disturbance, and anxiety; I13.0 Hypertensive heart and chronic kidney disease with heart failure and stage 1 through stage 4 chronic kidney disease, or unspecified chronic kidney disease; E11.43 Type 2 diabetes mellitus with diabetic autonomic (poly)neuropathy; I08.3 Combined rheumatic disorders of mitral, aortic and tricuspid valves; N18.2 Chronic kidney disease, stage 2 (mild); D50.9 Iron deficiency anemia, unspecified; K80.80 Other cholelithiasis without obstruction; M81.0 Age-related osteoporosis without current pathological fracture; I49.8 Other specified cardiac arrhythmias; I25.10 Atherosclerotic heart disease of native coronary artery without angina pectoris; E78.5 Hyperlipidemia, unspecified; F32.9 Major depressive disorder, single episode, unspecified; S70.01XA Contusion of right hip, initial encounter; S90.01XA Contusion of right ankle, initial encounter; W18.30XA Fall on same level, unspecified, initial encounter; Y93.89 Activity, other specified; Y92.89 Other specified places as the place of occurrence of the external cause; Z88.0 Allergy status to penicillin; Y99.8 Other external cause status; Z79.82 Long term (current) use of aspirin; Z79.4 Long term (current) use of insulin
CPT/HCPCS: 36415-UA; 73501; 73610-RT-TC; 80053-TC; 81001-TC; 82550-TC; 82948-90; 84484-TC; 85025-TC; 85610-TC; 93005; 93880-TC; 94760; J1815; J7030; Z7610